=== PATIENT | male | born 1945 | race Caucasian/White ===

== ENCOUNTER → 2019-05-21 12:15 | Outpatient (BNVA) | payer MEDICARE, SELFPAY | PROVIDERS: Family Provider Family Medicine; PCP Family Medicine; Visit Provider Urology | DX: N40.1 Benign prostatic hyperplasia with lower urinary tract symptoms (principal); N39.41 Urge incontinence | CPT/HCPCS: 81001 ==

== ENCOUNTER 2019-06-30 12:15 | Outpatient (CLI) | payer MEDICARE, SELFPAY ==
[2019-06-30 13:14] VITALS: BP 141/85; PULSE 63; RESP 16; TEMP 36.9; O2SAT 92
--- NOTE | 2019-06-30 13:16 | PC.NURSE ---
Screened for COVID symptoms or exposure. Denied.
[2019-06-30] MEDS: denosumab 60 mg SDV SUBCUT (13:21)
[2019-06-30 13:42] VITALS: BP 130/82; PULSE 70; TEMP 36.6
== END 2019-06-30 12:16 | disposition home or self-care (01) ==
LOC: RHEOACUTE 12:15
PROVIDERS: Family Provider Family Medicine; PCP Family Medicine; Visit Provider Internal Medicine Rheumatology
DX: M81.0 Age-related osteoporosis without current pathological fracture (principal)
CPT/HCPCS: 96372; J0897

== ENCOUNTER 2019-10-02 11:12 | Outpatient (CLI) | payer MEDICARE, SELFPAY ==
--- NOTE | 2019-10-02 11:30 | USCV_ITS ---
Sung Solano Age: 73 Gender: M : 1945 Exam Date: 10/02/2019 11:33 Ordering Phys: Nahum Ramirez MD ([email or web address]) Technologist: Suad Singletary Exam Location: [facility] Indication: STENOSIS BP: / HR: 58 Rhythm: Sinus Technical Quality: Suboptimal MEASUREMENTS (Male / Female) Normal Values 2D ECHO LV Diastolic Diameter PLAX 5.1 cm 4.2 - 5.9 / 3.9 - 5.3 cm LV Systolic Diameter PLAX 3.9 cm LV Chamber Size 3.9 cm IVS Diastolic Thickness 1.9 cm 0.6 - 1.0 / 0.6 - 0.9 cm IVS Systolic Thickness 2.2 cm LVPW Diastolic Thickness 2.2 cm 0.6 - 1.0 / 0.6 - 0.9 cm LVPW Systolic Thickness 2.0 cm RV Chamber Size 3.0 cm LVOT Diameter 2.1 cm LV Ejection Fraction 2D Teich 47.1 % LV Ejection Fraction MOD 2C 72.2 % LV Ejection Fraction 2C AL 73.4 % LA Diameter 5.0 cm LA Width 4.1 cm LA Height 5.2 cm RA Width 4.0 cm RA Height 4.6 cm Aorta at Sinotubular Diameter 3.3 cm M-MODE LV Diastolic Diameter MM 5.5 cm 4.2 - 5.9 / 3.9 - 5.3 cm LV Systolic Diameter MM 3.8 cm LV Ejection Fraction MM Teich 57.2 % IVS Diastolic Thickness MM 1.2 cm 0.6 - 1.0 / 0.6 - 0.9 cm IVS Systolic Thickness MM 1.6 cm LVPW Diastolic Thickness MM 1.7 cm 0.6 - 1.0 / 0.6 - 0.9 cm LVPW Systolic Thickness MM 1.6 cm Aortic Annulus Diameter 3.6 cm LA Ao Ratio MM 1.4 MV E Point Septal Separation 0.7 cm DOPPLER AV Peak Velocity 314.0 cm/s LVOT Peak Velocity 93.0 cm/s AV Area Cont Eq vti 0.8 cm squared AV Area Cont Eq pk 1.0 cm squared MV Area PHT 2.6 cm squared Mitral E to A Ratio 0.9 MV E' Velocity 12.0 cm/s Mitral E to MV E' Ratio 4.9 Mitral E to LV E' Lateral Ratio 4.9 Mitral E to LV E' Septal Ratio 4.9 TR Peak Velocity 204.0 cm/s TR Peak Gradient 16.7 mmHg TV Peak E Velocity 95.0 cm/s Right Atrial Pressure 3.0 mmHg Pulmonary Artery Systolic Pressu 19.6 mmHg PV Peak Velocity 80.0 cm/s RV Acceleration Time 0.1 s RV Ejection Time 0.4 s RV AcT/ET 0.4 FINDINGS Left Ventricle Normal left ventricular cavity size. Mild left ventricular hypertrophy. Normal left ventricular systolic function. No regional wall motion abnormalities. Grade I/IV diastolic dysfunction (abnormal relaxation filling pattern), normal to mildly elevated filling pressures. Left ventricular ejection fraction is estimated at 60 %. Right Ventricle Normal right ventricular size and systolic function. Normal right ventricular systolic pressure. Right Atrium Mildly increased right atrial size. Left Atrium Mildly increased left atrial size. Mitral Valve Structurally normal mitral valve. No mitral valve regurgitation. Aortic Valve Thickened aortic valve. Moderate aortic valve stenosis. No aortic valve regurgitation. Moderate aortic valve stenosis, mean gradient 19.5 mmHg, RASHAD 0.78 cm squared. Tricuspid Valve Structurally normal tricuspid valve. Trace tricuspid valve regurgitation. Pulmonic Valve Pulmonic valve not well visualized. Pericardium Normal pericardium without effusion. Aorta Normal ascending aorta dimension. CONCLUSIONS Normal left ventricular cavity size. Mild left ventricular hypertrophy. Normal left ventricular systolic function. No regional wall motion abnormalities. Grade I/IV diastolic dysfunction (abnormal relaxation filling pattern), normal to mildly elevated filling pressures. Left ventricular ejection fraction is estimated at 60 %. Mildly increased right atrial size. Mildly increased left atrial size. Thickened aortic valve. Moderate aortic valve stenosis. No aortic valve regurgitation. Moderate aortic valve stenosis, mean gradient 19.5 mmHg, RASHAD 0.78 cm squared. From the previous echo dictated 03/31/2019 there has essentially been no change. Today's measurement of the aortic valve area is less however the gradient would suggest this is still in the moderate aortic stenosis range. Dr. Nahum Ramirez MD (Electronically Signed) Final Date: 03 October 2019 13:01 S
== END 2019-10-02 11:13 | disposition home or self-care (01) ==
LOC: RAD 11:13
PROVIDERS: PCP Family Medicine; Visit Provider Internal Medicine Cardiovascular Disease
DX: I35.0 Nonrheumatic aortic (valve) stenosis (principal); I51.81 Takotsubo syndrome
CPT/HCPCS: 93306

== ENCOUNTER 2020-02-11 13:44 | Outpatient (CLI) | payer MEDICARE, SELFPAY ==
[2020-02-11 13:48] VITALS: BP 151/82; PULSE 66; RESP 18; TEMP 36.8; O2SAT 94
[2020-02-11] MEDS: denosumab 60 mg SDV SUBCUT (13:55)
--- NOTE | 2020-02-11 14:02 | PC.NURSE ---
Pt in wheelchair, escorted by . Noted 1+ edema to bilat lower extremities.
[2020-02-11 14:21] VITALS: BP 132/83; PULSE 63; RESP 18; TEMP 37
== END 2020-02-11 13:45 | disposition home or self-care (01) ==
LOC: RHEOACUTE 13:45
PROVIDERS: PCP Family Medicine; Visit Provider Internal Medicine Rheumatology
DX: M81.0 Age-related osteoporosis without current pathological fracture (principal)
CPT/HCPCS: 96372; J0897

== ENCOUNTER 2020-10-15 13:42 | Outpatient (CLI) | payer MEDICARE, SELFPAY ==
--- NOTE | 2020-10-15 | USCV_ITS ---
iam Sung Solano Age: 74 Gender: M : 1945 Exam Date: 10/15/2020 14:03 Ordering Phys: Jonh Guadalupe MD Technologist: Neha Thakur Exam Location: [facility] [place] Indication: BP: 129 / 78 HR: 66 Rhythm: Sinus Technical Quality: Technically difficult study MEASUREMENTS (Male / Female) Normal Values 2D ECHO LV Diastolic Diameter PLAX 4.6 cm 4.2 - 5.9 / 3.9 - 5.3 cm LV Systolic Diameter PLAX 3.6 cm LV Chamber Size 3.1 cm IVS Diastolic Thickness 1.7 cm 0.6 - 1.0 / 0.6 - 0.9 cm IVS Systolic Thickness 1.9 cm LVPW Diastolic Thickness 1.5 cm 0.6 - 1.0 / 0.6 - 0.9 cm LVPW Systolic Thickness 1.8 cm RV Chamber Size 3.5 cm LVOT Diameter 2.1 cm LV Ejection Fraction 2D Teich 45.2 % LV Ejection Fraction MOD 2C 37.7 % LV Ejection Fraction 2C AL 41.3 % LA Diameter 4.9 cm LA Width 4.3 cm LA Height 4.3 cm RA Width 3.6 cm RA Height 4.6 cm Aorta at Sinotubular Diameter 3.1 cm M-MODE LV Diastolic Diameter MM 5.3 cm 4.2 - 5.9 / 3.9 - 5.3 cm LV Systolic Diameter MM 3.5 cm LV Ejection Fraction MM Teich 63.6 % IVS Diastolic Thickness MM 1.7 cm 0.6 - 1.0 / 0.6 - 0.9 cm IVS Systolic Thickness MM 2.4 cm LVPW Diastolic Thickness MM 2.0 cm 0.6 - 1.0 / 0.6 - 0.9 cm LVPW Systolic Thickness MM 2.2 cm Aortic Annulus Diameter 3.8 cm LA Ao Ratio MM 1.4 MV E Point Septal Separation 0.4 cm DOPPLER AV Peak Velocity 382.3 cm/s LVOT Peak Velocity 78.3 cm/s AV Area Cont Eq vti 1.0 cm squared AV Area Cont Eq pk 0.7 cm squared MV Area PHT 2.8 cm squared Mitral E to A Ratio 1.1 MV E' Velocity 45.0 cm/s Mitral E to MV E' Ratio 6.7 Mitral E to LV E' Lateral Ratio 8.4 Mitral E to LV E' Septal Ratio 5.6 TR Peak Velocity 275.8 cm/s TR Peak Gradient 30.4 mmHg TR Mean Velocity 222.9 cm/s TR Mean Gradient 22.9 mmHg TR Velocity Time Integral 92.7 cm TV Peak E Velocity 68.0 cm/s Right Atrial Pressure 3.0 mmHg Pulmonary Artery Systolic Pressu 33.4 mmHg PV Peak Velocity 57.0 cm/s RV Acceleration Time 0.2 s RV Ejection Time 0.4 s RV AcT/ET 0.5 FINDINGS Left Ventricle Normal left ventricular size. LV systolic function is normal with EF of 55-60%. No regional wall motion abnormalities. Normal diastolic filling pattern. Right Ventricle The right ventricle is normal in size and function. Right Atrium The right atrium is normal in size. Left Atrium The left atrium is normal in size. Mitral Valve Structurally normal mitral valve without significant stenosis or prolapse. There is no mitral regurgitation. Aortic Valve Aortic valve is thickened and calcified. Moderate to severe aortic stenosis is noted. By continuity equation, RASHAD is 1cm2 and mean gradient across the aortic valve is 28mmHg. There is no aortic regurgitation. Tricuspid Valve Structurally normal tricuspid valve without significant stenosis or regurgitation. Insufficient TR jet to calculate RVSP Pulmonic Valve Not well visualized Pericardium Normal pericardium without effusion. Aorta Normal ascending aorta dimension. CONCLUSIONS LV systolic function is normal with EF of 55-60% Diastolic function is normal Moderate to severe aortic stenosis Compared to prior echocardiogram from 10/02/2019, aortic valve gradient has increased further. Bladimir Degroot MD (Electronically Signed) Final Date: 24 October 2020 17:33 S
== END 2020-10-15 13:43 | disposition home or self-care (01) ==
PROVIDERS: PCP Family Medicine; Visit Provider Family Medicine
DX: I35.0 Nonrheumatic aortic (valve) stenosis (principal)
CPT/HCPCS: 93306

== ENCOUNTER 2020-10-21 10:39 | Outpatient (CLI) | payer MEDICARE, SELFPAY ==
[2020-10-21 11:01] VITALS: BP 162/95; PULSE 67; RESP 20; TEMP 36.9; O2SAT 94
[2020-10-21] MEDS: denosumab 60 mg SDV SUBCUT (11:19)
[2020-10-21 11:27] VITALS: BP 143/88; PULSE 59; RESP 20; TEMP 37.1; O2SAT 95
== END 2020-10-21 10:40 | disposition home or self-care (01) ==
LOC: ONCMED 10:44
PROVIDERS: PCP Family Medicine; Referring Provider Family Medicine; Visit Provider Internal Medicine Medical Oncology
DX: M81.0 Age-related osteoporosis without current pathological fracture (principal); Z79.899 Other long term (current) drug therapy
CPT/HCPCS: 96372; J0897

== ENCOUNTER 2021-04-25 10:46 | Outpatient (CLI) | payer MEDICARE, SELFPAY ==
[2021-04-25 11:00] VITALS: BP 154/94; PULSE 67; RESP 18; TEMP 36.5; O2SAT 96
[2021-04-25] MEDS: denosumab 60 mg SDV SUBCUT (11:14)
[2021-04-25 11:20] VITALS: BP 156/95; PULSE 63; RESP 18; TEMP 37.2; O2SAT 93
== END 2021-04-25 10:47 | disposition home or self-care (01) ==
LOC: RHEOACUTE 10:53 → ONCMED 11:07
PROVIDERS: PCP Family Medicine; Visit Provider Family Medicine
DX: M81.0 Age-related osteoporosis without current pathological fracture (principal)
CPT/HCPCS: 96372; J0897

== ENCOUNTER → 2021-05-04 08:59 | Outpatient (BNVA) | payer MEDICARE, SELFPAY | PROVIDERS: PCP Family Medicine; Visit Provider Family Medicine | DX: D50.9 Iron deficiency anemia, unspecified (principal); I11.0 Hypertensive heart disease with heart failure; I50.30 Unspecified diastolic (congestive) heart failure; I35.0 Nonrheumatic aortic (valve) stenosis; K21.9 Gastro-esophageal reflux disease without esophagitis; N40.1 Benign prostatic hyperplasia with lower urinary tract symptoms | CPT/HCPCS: 80053; 80061; 83540; 83880; 84153; 84443; 85025 ==

== ENCOUNTER 2021-06-08 14:36 | Outpatient (CLI) | payer MEDICARE, SELFPAY ==
[2021-06-08 15:42] LABS: Blood Urea Nitrogen 23 mg/dL (8-23); Calcium 9.6 mg/dL (8.5-10.5); Carbon Dioxide 25 mmol/L (22-29); Chloride 100 mmol/L (98-107); Glucose 126 mg/dL (65-115); Osmolality Calculated 293 mOsm/kg (285-295); Sodium 139 mmol/L (136-145)
[2021-06-08 15:43] LABS: Anion Gap 18.1 (5-19); Potassium 4.1 mmol/L (3.5-5.1)
== END 2021-06-08 14:37 | disposition home or self-care (01) ==
PROVIDERS: PCP Family Medicine; Visit Provider Nurse Practitioner Family
DX: I10 Essential (primary) hypertension (principal); I35.0 Nonrheumatic aortic (valve) stenosis; I50.30 Unspecified diastolic (congestive) heart failure
CPT/HCPCS: 80048

== ENCOUNTER 2021-06-14 07:32 | Outpatient (CLI) | payer MEDICARE, SELFPAY ==
--- NOTE | 2021-06-14 08:00 | USCV_ITS ---
Sung Solano Age: 75 Gender: M : 1945 Exam Date: 06/14/2021 08:00 Ordering Phys: Vaishnavi Baires Technologist: PADMINI [place] [facility] [place]: Nonrhuematic aortic valve stenosis BP: 160 / 92 HR: 62 Rhythm: Sinus Technical Quality: Technically difficult study MEASUREMENTS (Male / Female) Normal Values 2D ECHO LV Diastolic Diameter PLAX 4.3 cm 4.2 - 5.9 / 3.9 - 5.3 cm LV Systolic Diameter PLAX 3.2 cm IVS Diastolic Thickness 1.3 cm 0.6 - 1.0 / 0.6 - 0.9 cm IVS Systolic Thickness 1.4 cm LVPW Diastolic Thickness 1.2 cm 0.6 - 1.0 / 0.6 - 0.9 cm LVPW Systolic Thickness 1.3 cm LVOT Diameter 2.0 cm LV Ejection Fraction 2D Teich 53.2 % LV Ejection Fraction MOD 2C 65.0 % LV Ejection Fraction 2C AL 65.6 % M-MODE MV E Point Septal Separation 0.4 cm DOPPLER LVOT Peak Velocity 60.0 cm/s MV Area PHT 5.0 cm squared Mitral E to A Ratio 0.9 MV E' Velocity 60.0 cm/s TR Peak Velocity 311.0 cm/s TR Peak Gradient 38.7 mmHg TV Peak E Velocity 46.0 cm/s PV Peak Velocity 85.0 cm/s RV Acceleration Time 0.1 s RV Ejection Time 0.3 s RV AcT/ET 0.3 FINDINGS Left Ventricle Normal left ventricular size. LV systolic function is normal with EF of 55 to 60%. No regional wall motion abnormalities are seen. Grade 1 diastolic dysfunction Right Ventricle The right ventricle is normal in size and function. Right Atrium Not well visualized Left Atrium Not well visualized Mitral Valve Grossly normal without significant stenosis or prolapse. There is mild mitral regurgitation. Aortic Valve Aortic valve is thickened. Poor Doppler signals. Aortic valve stenosis cannot accurately be assessed. At least moderate aortic stenosis. Tricuspid Valve Grossly normal tricuspid valve without significant stenosis or regurgitation. Insufficient TR jet to calculate RVSP Pulmonic Valve Not well visualized Pericardium Normal pericardium without effusion. Aorta Normal ascending aorta dimension. CONCLUSIONS Technically limited quality echocardiogram because of poor ultrasonic windows. LV systolic function is normal with EF of 55 to 60%. Grade 1 diastolic dysfunction. Mild mitral regurgitation. Aortic valve is thickened. Poor Doppler signals obtained. Aortic valve stenosis cannot accurately be assessed however it is at least moderate. Comparison with prior echocardiogram not possible as current study is poor quality Bladimir Degroot MD (Electronically Signed) Final Date: 17 June 2021 17:58 S
== END 2021-06-14 07:33 | disposition home or self-care (01) ==
PROVIDERS: PCP Family Medicine; Visit Provider Nurse Practitioner Family
DX: I10 Essential (primary) hypertension; I08.0 Rheumatic disorders of both mitral and aortic valves
CPT/HCPCS: 93306

== ENCOUNTER → 2021-10-05 09:38 | Outpatient (BNVA) | payer MEDICARE, SELFPAY | PROVIDERS: PCP Family Medicine; Visit Provider Family Medicine | DX: M81.0 Age-related osteoporosis without current pathological fracture (principal); D50.9 Iron deficiency anemia, unspecified; K21.9 Gastro-esophageal reflux disease without esophagitis; N40.1 Benign prostatic hyperplasia with lower urinary tract symptoms; I10 Essential (primary) hypertension | CPT/HCPCS: 80053; 82306; 85027 ==

== ENCOUNTER 2021-10-24 09:35 | Outpatient (CLI) | payer MEDICARE, SELFPAY ==
[2021-10-24 09:45] VITALS: BP 112/78; PULSE 67; RESP 18; TEMP 36.7; O2SAT 91
[2021-10-24] MEDS: denosumab 60 mg SDV SUBCUT (09:53)
[2021-10-24 10:04] VITALS: BP 145/75; PULSE 67; RESP 18; TEMP 37; O2SAT 93
== END 2021-10-24 09:36 | disposition home or self-care (01) ==
PROVIDERS: PCP Family Medicine; Referring Provider Family Medicine; Visit Provider Family Medicine
DX: S42.301A Unspecified fracture of shaft of humerus, right arm, initial encounter for closed fracture (principal); S42.302A Unspecified fracture of shaft of humerus, left arm, initial encounter for closed fracture; X58.XXXA Exposure to other specified factors, initial encounter
CPT/HCPCS: 96372; J0897

== ENCOUNTER 2022-02-10 13:35 | Outpatient (CLI) | payer MEDICARE, SELFPAY ==
--- NOTE | 2022-02-10 14:15 | USCV_ITS ---
Sung Solano Age: 76 Gender: M : 1945 Exam Date: 02/10/2022 14:22 Ordering Phys: Bladimir Degroot M.D ([email or web address]) Technologist: Iris Sunshine [place] [facility] [place]ication: Hypertension BP: 138 / 86 HR: 71 Rhythm: Sinus Technical Quality: Suboptimal MEASUREMENTS (Male / Female) Normal Values 2D ECHO LV Diastolic Diameter PLAX 3.3 cm 4.2 - 5.9 / 3.9 - 5.3 cm LV Systolic Diameter PLAX 2.1 cm IVS Diastolic Thickness 1.6 cm 0.6 - 1.0 / 0.6 - 0.9 cm IVS Systolic Thickness 2.5 cm LVPW Diastolic Thickness 3.5 cm 0.6 - 1.0 / 0.6 - 0.9 cm LVPW Systolic Thickness 1.6 cm LVOT Diameter 2.3 cm LV Ejection Fraction 2D Teich 87.2 % LA Diameter 2.9 cm Aorta at Sinotubular Diameter 4.0 cm M-MODE MV E Point Septal Separation 0.3 cm DOPPLER AV Peak Velocity 217.0 cm/s LVOT Peak Velocity 116.0 cm/s AV Area Cont Eq vti 2.9 cm squared AV Area Cont Eq pk 2.3 cm squared MV Peak Velocity 77.0 cm/s MV Area PHT 2.9 cm squared Mitral E to A Ratio 0.7 MV E' Velocity 50.0 cm/s TR Peak Velocity 139.5 cm/s TR Peak Gradient 7.8 mmHg Right Atrial Pressure 3.0 mmHg Pulmonary Artery Systolic Pressu 10.8 mmHg PV Peak Velocity 110.0 cm/s RV Acceleration Time 0.1 s RV Ejection Time 0.3 s RV AcT/ET 0.3 FINDINGS Left Ventricle Normal left ventricular cavity size and systolic function. Left ventricular ejection fraction is estimated at 60 %. This study is inadequate for extimation of regional wall motion abnormality. Right Ventricle Possibly normal right ventricular size and systolic function. Right Atrium Right atrium not well visualized. Left Atrium Left atrium not well visualized. Mitral Valve Mildly thickened mitral valve. Aortic Valve Thickened and calcified trileaflet aortic valve. Visually appears to have at least moderate aortic stenosis. Tricuspid Valve Tricuspid valve not well visualized. Pulmonic Valve Pulmonic valve not well visualized. Pericardium No pericardial effusion. Aorta Normal size aortic root and proximal ascending aorta. IVC Inferior vena cava not visualized. CONCLUSIONS 1. Technically very difficult study with poor windows. 2. Probably normal left ventricular cavity size and systolic function. Left ventricular ejection fraction is estimated at 60 %. This study is inadequate for extimation of regional wall motion abnormality. 3. Thickened and calcified trileaflet aortic valve. Visually appears to have at least moderate aortic stenosis. 4. Valves were not well assessed in this study. 5. Direct comparison to previous study is not possible due to technically difficult study. Ami Duran MD (Electronically Signed) Final Date: 11 February 2022 10:23 S
== END 2022-02-10 13:36 | disposition home or self-care (01) ==
LOC: RAD 13:36
PROVIDERS: PCP Family Medicine; Visit Provider Internal Medicine
DX: I11.0 Hypertensive heart disease with heart failure (principal); I50.32 Chronic diastolic (congestive) heart failure; I35.0 Nonrheumatic aortic (valve) stenosis
CPT/HCPCS: 93306

== ENCOUNTER 2022-02-16 13:43 | Outpatient (CLI) | payer MEDICARE, SELFPAY ==
--- NOTE | 2022-02-16 13:50 | XR_ITS ---
WS: [id number] DEXA (DUAL ENERGY X-RAY ABSORPTIOMETRY) Bone mineral density was performed using a [employer]veline machine. HISTORY: Osteoporosis COMPARISON: 11/20/2018 Total hip BMD: Left: 0.822 g/cm2. T score: -1.9 Z score: -1.4 Right: 0.814 g/cm2. T score: -2.0 Z score: -1.5 10 year probability of a major osteoporotic fracture is 12.4%. Compared to the prior study from . Lumbar spine bone mineral density has increased by percent%. Bilateral hips bone mineral density has increased by %. Compared to the prior study from 11/20/2018. Bilateral hips bone mineral density has increased by 5.8%. XR/XR DEXA axial skeleton* [id number] IMPRESSION: OSTEOPENIA. Significant increase in bone mineral density within the hips since the prior .
== END 2022-02-16 13:44 | disposition home or self-care (01) ==
LOC: RAD 13:44
PROVIDERS: PCP Family Medicine; Visit Provider Family Medicine
DX: M81.0 Age-related osteoporosis without current pathological fracture (principal); M85.80 Other specified disorders of bone density and structure, unspecified site
CPT/HCPCS: 77080

== ENCOUNTER → 2022-04-11 11:21 | Outpatient (BNVA) | payer MEDICARE, SELFPAY | PROVIDERS: PCP Family Medicine; Visit Provider Family Medicine | DX: D50.9 Iron deficiency anemia, unspecified (principal); R73.9 Hyperglycemia, unspecified; I11.0 Hypertensive heart disease with heart failure; I50.32 Chronic diastolic (congestive) heart failure | CPT/HCPCS: 80053; 80061; 83036; 85025 ==

== ENCOUNTER → 2022-04-25 10:21 | Outpatient (BNVA) | payer MEDICARE, SELFPAY | PROVIDERS: PCP Family Medicine; Visit Provider Family Medicine | DX: M81.0 Age-related osteoporosis without current pathological fracture (principal) | CPT/HCPCS: 82652 ==

== ENCOUNTER 2022-04-25 10:53 | Outpatient (RCR) | payer MEDICARE, SELFPAY | END 2022-05-09 23:59 | disposition home or self-care (01) | LOC: SPT 10:53 | PROVIDERS: PCP Family Medicine; Visit Provider Family Medicine | DX: M47.812 Spondylosis without myelopathy or radiculopathy, cervical region (principal) | CPT/HCPCS: 97161 ==

== ENCOUNTER 2022-04-27 08:37 | Outpatient (CLI) | payer MEDICARE, SELFPAY ==
[2022-04-27 08:52] VITALS: BP 122/83; PULSE 62; RESP 18; TEMP 36.9; O2SAT 93
[2022-04-27] MEDS: denosumab 60 mg SDV SUBCUT (09:01)
[2022-04-27 09:07] VITALS: BP 120/70; PULSE 71; RESP 18; TEMP 36.8; O2SAT 91
== END 2022-04-27 08:38 | disposition home or self-care (01) ==
LOC: ONCMED 08:37
PROVIDERS: PCP Family Medicine; Visit Provider Internal Medicine Medical Oncology
DX: M81.0 Age-related osteoporosis without current pathological fracture (principal)
CPT/HCPCS: 96372; J0897

== ENCOUNTER 2022-05-10 06:00 | Outpatient (RCR) | payer MEDICARE, SELFPAY | END 2022-06-06 23:59 | disposition home or self-care (01) | LOC: SPT 06:00 | PROVIDERS: PCP Family Medicine; Visit Provider Family Medicine | DX: M47.812 Spondylosis without myelopathy or radiculopathy, cervical region (principal) | CPT/HCPCS: 97110; 97530 ==

== ENCOUNTER 2022-09-21 14:01 | Outpatient (CLI) | payer MEDICARE, SELFPAY ==
--- NOTE | 2022-09-21 14:30 | USCV_ITS ---
Sung Solano Age: 76 Gender: M : 1945 Exam Date: 09/21/2022 15:02 Ordering Phys: Bladimir Degroot M.D ([email or web address]) Technologist: ED Exam Location: [facility] – [place] Indication: AORTIC STENOSIS BP: 124 / 78 HR: 63 Rhythm: Sinus Technical Quality: Adequate MEASUREMENTS (Male / Female) Normal Values 2D ECHO LVOT Diameter 2.0 cm LV Ejection Fraction MOD 2C 61.7 % LV Ejection Fraction 2C AL 61.5 % LA Diameter 4.7 cm LA Width 3.5 cm LA Height 4.7 cm RA Width 3.7 cm RA Height 4.4 cm Aorta at Sinotubular Diameter 3.0 cm M-MODE Aortic Annulus Diameter 3.4 cm LA Ao Ratio MM 1.3 MV E Point Septal Separation 1.1 cm DOPPLER AV Peak Velocity 317.8 cm/s LVOT Peak Velocity 93.0 cm/s AV Area Cont Eq vti 0.9 cm squared AV Area Cont Eq pk 1.0 cm squared MV Peak Velocity 84.0 cm/s MV Area PHT 2.5 cm squared Mitral E to A Ratio 0.9 MV E' Velocity 36.5 cm/s Mitral E to MV E' Ratio 7.6 Mitral E to LV E' Lateral Ratio 6.5 Mitral E to LV E' Septal Ratio 9.1 TV Peak E Velocity 40.0 cm/s Right Atrial Pressure 8.0 mmHg PV Peak Velocity 114.0 cm/s RV Acceleration Time 0.1 s RV Ejection Time 0.3 s RV AcT/ET 0.3 FINDINGS Left Ventricle Left ventricle is normal in size. LV systolic function is normal with EF of 55 to 60%. No regional wall motion abnormalities are seen. Grade 1 diastolic dysfunction. Right Ventricle Normal in size and function Right Atrium Grossly normal Left Atrium Grossly normal Mitral Valve Grossly normal. Mild mitral regurgitation. Aortic Valve Aortic valve is thickened and calcified. Moderate to severe aortic stenosis with aortic valve area of 0.81 cm squared and mean gradient across the aortic valve of 29 mmHg. Tricuspid Valve Mild tricuspid regurgitation. Pulmonic Valve Not well visualized Pericardium Not well-visualized Aorta Normal in size IVC Appears to be normal CONCLUSIONS LV systolic function is normal with EF of 55 to 60%. Grade 1 diastolic dysfunction Mild mitral regurgitation Moderate to severe aortic stenosis. Mild tricuspid regurgitation. Accurate comparison with prior echo is not possible because of poor quality prior echoes. Patient has moderate to severe aortic stenosis now. Bladimir Degroot MD (Electronically Signed) Final Date: 30 September 2022 14:46 S
[2022-09-21] MEDS: perflutren protein-a microsphr 0.22 mg/mL SDV 3 mL IV (15:37)
== END 2022-09-21 14:02 | disposition home or self-care (01) ==
PROVIDERS: PCP Family Medicine; Visit Provider Internal Medicine
DX: I35.0 Nonrheumatic aortic (valve) stenosis (principal)
CPT/HCPCS: C8929; Q9956

== ENCOUNTER → 2022-10-03 10:00 | Outpatient (BNVA) | payer MEDICARE, SELFPAY | PROVIDERS: PCP Family Medicine; Visit Provider Family Medicine | DX: Z00.00 Encounter for general adult medical examination without abnormal findings (principal); I10 Essential (primary) hypertension; Z12.5 Encounter for screening for malignant neoplasm of prostate; R73.9 Hyperglycemia, unspecified; E83.52 Hypercalcemia | CPT/HCPCS: 80053; 80061; 82306; 82310; 83036; 83970; 84443; 85025; G0103 ==

== ENCOUNTER → 2022-10-16 12:50 | Outpatient (BNVA) | payer MEDICARE, SELFPAY | PROVIDERS: PCP Family Medicine; Visit Provider Internal Medicine Cardiovascular Disease | DX: I35.0 Nonrheumatic aortic (valve) stenosis (principal); I11.9 Hypertensive heart disease without heart failure | CPT/HCPCS: 99213 ==

== ENCOUNTER → 2023-04-11 09:38 | Outpatient (BNVA) | payer MEDICARE, SELFPAY | PROVIDERS: PCP Family Medicine; Visit Provider Family Medicine | DX: E55.9 Vitamin D deficiency, unspecified (principal); I50.30 Unspecified diastolic (congestive) heart failure; Z12.5 Encounter for screening for malignant neoplasm of prostate; R73.9 Hyperglycemia, unspecified; I11.0 Hypertensive heart disease with heart failure | CPT/HCPCS: 80053; 80061; 82306; 83036; 84443; 85025; G0103 ==

== ENCOUNTER → 2023-10-15 12:28 | Outpatient (BNVA) | payer MEDICARE, SELFPAY | PROVIDERS: PCP Family Medicine; Visit Provider Internal Medicine | DX: I35.0 Nonrheumatic aortic (valve) stenosis (principal); I11.9 Hypertensive heart disease without heart failure | CPT/HCPCS: 99214 ==

== ENCOUNTER 2024-01-18 12:33 | Outpatient (CLI) | payer MEDICARE, SELFPAY ==
[2024-01-18] MEDS: iohexol 350 mg/mL 500 mL Btl (per mL) IV (13:43)
--- NOTE | 2024-01-18 13:45 | CTR_ITS ---
PROCEDURE INFORMATION: Exam: CT Abdomen And Pelvis With Contrast Exam date and time: 01/18/2024 1:29 PM Age: 78 years old Clinical indication: Abdominal pain; Localized; Left; Prior surgery; Surgery date: 6+ months; Surgery type: Appy, gb, umbilical hernia; Additional info: Left abdominal pain TECHNIQUE: Imaging protocol: Computed tomography of the abdomen and pelvis with contrast. Radiation optimization: All CT scans at this facility use at least one of these dose optimization techniques: automated exposure control; mA and/or kV adjustment per patient size (includes targeted exams where dose is matched to clinical indication); or iterative reconstruction. Contrast material: OMNI 350; Contrast volume: 100 ml; Contrast route: INTRAVENOUS (IV); COMPARISON: CT chest abdpel w/*[id number] 11/03/2018 10:27 AM RADIATION DOSE METRICS: Total DLP (mGy-cm): 1130.68 FINDINGS: Diaphragm: Large posterior diaphragmatic hernia, predominantly on the right side. Liver: Small hepatic cyst. Gallbladder and biliary ducts: Cholecystectomy. Pancreas: Normal. No ductal dilation. Spleen: Normal. No splenomegaly. Adrenal glands: Normal. No mass. Kidneys and ureters: Bilateral renal cysts. Stomach and bowel: Unremarkable. No obstruction. No mucosal thickening. Appendix: No evidence of appendicitis. Intraperitoneal space: There is a small focal area of calcified fibrosis in may meet mesentery (3-39). This is unchanged since 11/03/2018. Vasculature: Unremarkable. No abdominal aortic aneurysm. Lymph nodes: Unremarkable. No enlarged lymph nodes. Urinary bladder: Unremarkable as visualized. Reproductive: Unremarkable as visualized. Bones/joints: Unremarkable. No acute fracture. Soft tissues: Left inguinal hernia containing only fat. CT/CT abdomen pelvis w con* [id number] IMPRESSION: No acute findings. COMMENTS: Consistent with the [employer]'s Incidental Findings Committee white paper (J Am Rickey Radiol 2018): Any incidental renal lesion less than 1 cm or classified as too small to characterize, or any incidental cystic renal lesion characterized as simple-appearing, is likely benign. No follow-up imaging is recommended for these lesions per consensus recommendations based on imaging criteria.
[2024-01-18 14:30] LABS: Blood Urea Nitrogen 19 mg/dL (8-23)
== END 2024-01-18 12:34 | disposition home or self-care (01) ==
PROVIDERS: PCP Family Medicine; Visit Provider Emergency Medicine
DX: K66.8 Other specified disorders of peritoneum (principal); Q61.02 Congenital multiple renal cysts; K42.9 Umbilical hernia without obstruction or gangrene; Z90.49 Acquired absence of other specified parts of digestive tract; R10.32 Left lower quadrant pain
CPT/HCPCS: 74177; 80053; 80061; 82565; 83036; 83615; 84520; 85007; 85025; 85027; 85651; 86140; G0103

== ENCOUNTER → 2024-02-19 13:53 | Outpatient (BNVA) | payer MEDICARE, SELFPAY | PROVIDERS: PCP Family Medicine; Visit Provider Family Medicine | DX: I10 Essential (primary) hypertension (principal); R70.0 Elevated erythrocyte sedimentation rate; R79.82 Elevated C-reactive protein (CRP) | CPT/HCPCS: 85651; 86038; 86140; 86200; 86431 ==

== ENCOUNTER 2024-03-11 14:01 | Outpatient (CLI) | payer MEDICARE, SELFPAY ==
--- NOTE | 2024-03-11 14:15 | USCV_ITS ---
Sung Solano Age: 78 Gender: M : 1945 Exam Date: 03/11/2024 14:24 Ordering Phys: Bladimir Degroot M.D ([email or web address]) Technologist: CT Exam Location: [facility] – [place] Indication: sob BP: 115 / 79 HR: 107 Rhythm: Sinus Technical Quality: Technically difficult study MEASUREMENTS (Male / Female) Normal Values 2D ECHO LVOT Diameter 2.2 cm LV Ejection Fraction MOD 4C 73.0 % LV Ejection Fraction MOD 2C 53.7 % LV Ejection Fraction 2C AL 54.0 % LA Diameter 5.2 cm LA Sys Volume AL 92.2 cm cubed LA Sys Volume Index AL 37.8 cm cubed/m squared Aorta at Sinotubular Diameter 2.6 cm M-MODE LA Ao Ratio MM 1.5 AV Cusp Separation MM 1.4 cm DOPPLER AV Peak Velocity 418.0 cm/s LVOT Peak Velocity 106.0 cm/s AV Area Cont Eq vti 1.0 cm squared AV Area Cont Eq pk 1.0 cm squared MV Peak Velocity 66.0 cm/s MV Area PHT 2.5 cm squared Mitral E to A Ratio 1.3 TR Peak Velocity 237.0 cm/s TR Peak Gradient 22.5 mmHg TV Peak E Velocity 61.0 cm/s PV Peak Velocity 113.5 cm/s FINDINGS Left Ventricle Left ventricle is normal in size. LV systolic function is normal with EF 55 to 60%. No regional wall motion abnormalities Right Ventricle Normal in size and function Right Atrium Normal in size Left Atrium Dilated Mitral Valve Structurally normal mitral valve. Mild mitral regurgitation. Aortic Valve Aortic valve is thickened and calcified. Severe aortic stenosis with aortic valve area of 0.98 cm2 and mean gradient of 40 mmHg. Tricuspid Valve Insufficient TR jet to calculate RVSP Pulmonic Valve Not well visualized. Pericardium Normal Aorta Normal in size IVC Not visualized CONCLUSIONS Technically limited quality echocardiogram because of poor ultrasonic windows. LV systolic function is normal with EF of 55 to 60%. Left atrial dilation. Mild mitral regurgitation. Severe aortic stenosis. Compared to prior echocardiogram from 09/2022, aortic stenosis has progressed and is severe now. Bladimir Degroot MD (Electronically Signed) Final Date: 14 March 2024 14:13 S
== END 2024-03-11 14:02 | disposition home or self-care (01) ==
PROVIDERS: PCP Family Medicine; Visit Provider Internal Medicine
DX: I35.2 Nonrheumatic aortic (valve) stenosis with insufficiency (principal)
CPT/HCPCS: 93306

== ENCOUNTER → 2024-07-07 10:45 | Outpatient (BNVA) | payer MEDICARE, SELFPAY | PROVIDERS: PCP Family Medicine; Visit Provider Orthopaedic Surgery | DX: M65.941 Unspecified synovitis and tenosynovitis, right hand (principal); Z46.89 Encounter for fitting and adjustment of other specified devices | CPT/HCPCS: 73130; 99204 ==

== ENCOUNTER 2024-07-07 11:56 | Outpatient (CLI) | payer MEDICARE, SELFPAY | END 2024-07-07 11:57 | disposition home or self-care (01) | LOC: SPT 11:56 | PROVIDERS: PCP Family Medicine; Visit Provider Orthopaedic Surgery | DX: Z46.89 Encounter for fitting and adjustment of other specified devices (principal); M65.941 Unspecified synovitis and tenosynovitis, right hand; M25.531 Pain in right wrist | CPT/HCPCS: L3809 ==

== ENCOUNTER → 2024-08-12 14:10 | Outpatient (BNVA) | payer MEDICARE, SELFPAY | PROVIDERS: PCP Family Medicine; Visit Provider Family Medicine | DX: I50.32 Chronic diastolic (congestive) heart failure (principal); I35.0 Nonrheumatic aortic (valve) stenosis; Z95.2 Presence of prosthetic heart valve; I25.10 Atherosclerotic heart disease of native coronary artery without angina pectoris | CPT/HCPCS: 80048; 85025 ==

== ENCOUNTER → 2025-04-08 15:30 | Outpatient (BNVA) | payer MEDICARE, SELFPAY | PROVIDERS: PCP Family Medicine; Referring Provider Family Medicine; Visit Provider Internal Medicine Cardiovascular Disease | DX: R07.9 Chest pain, unspecified (principal); R94.31 Abnormal electrocardiogram [ECG] [EKG]; I45.19 Other right bundle-branch block | CPT/HCPCS: 93005 ==